=== PATIENT | male | born 1955 | race Caucasian/White ===

== ENCOUNTER 2023-06-07 02:20 | Emergency (ER) | payer OTHER ==
--- OUTSIDE RECORDS SUMMARY | 2023-06-07 02:24 | XMS REPORT | Continuity of Care Document ---
:1955 Author Organization [facility] t Address [address] [facility] [address] [place] [address] Care Team Providers Name Role Phone Lashae Melendez Primary Care Physician [phone] Lashae Nguyen Attending Clinician Unavailable VIVEK MOORE Attending Clinician Unavailable Payers Payer Name Policy Type Policy Number Effective Date Expiration Date S jer [employer] 6 [id number] [facility] t [facility] Problems Condition Condition Condition Status Onset Resolution Last Treating Co mments Source Name Details Category Date Date Treatment Clinician Date Benign Benign Disease Active Methodi essential essential 4-19 st tremor tremor 00:00: Hospita 00 l [id number] Obstructiv Problem Com mon e sleep Spirit apnea - [facility] syndrome [facility] [id number] Essential Problem Comm on hypertensi Spirit on - [facility] [id number] Vitreous Problem Commo n floaters Spirit of left - [facility] eye [facility] [id number] Cough Problem [facility] - [facility] [id number] Lumbar Problem Common spondylosi Spirit s - [facility] Esophageal Gastroesop Problem C ommon reflux hageal Spirit finding reflux - [facility] Gastritis Gastritis Problem Com mon Spirit [facility] Snoring Snoring Problem [facility] [id number] Screening Problem Com mon for Spirit prostate - [facility] cancer [facility] [id number] Body mass Problem Com mon index [facility] [BMI] [facility] 28.0-28.9, [facility] Allergies, Adverse Reactions, Alerts Allergy Allergy Status Severity Reaction(s) Onset Inactive Treating Comm ents Source Name Type Date Date Clinician lisinopr lisinopr Active cough Common il il Spirit - [facility] Family History Family Member Diagnosis Comments Start Date Stop Date Source Natural brother Hypertension [facility] father Tremor [facility] Natural mother Breast cancer [facility] mother Diabetes [facility] Social History Social Habit Start Date Stop Date Quantity Comments Source History of Tobacco Common [facility] - Use [facility] Gender identity [facility] Sexual orientation [facility] History of Social 2021-02-11 2021-02-[address] function 00:00:00 00:00:00 Hospital Alcohol Comment 2021-02-11 2021-02-11 occ [facility] 00:00:00 00:00:00 Hospital Tobacco use and 2021-02-11 2021-02-11 Smokeless [facility] exposure 00:00:00 00:00:00 tobacco non-user Hospital Alcohol intake 2021-02-11 2021-02-11 Current drinker [facility] 00:00:00 00:00:00 of alcohol Hospital (finding) Sex Ass[birth year] At [birth year] [facility] 00:00:00 00:00:00 Hospital Smoking Status Start Date Stop Date Source Never Smoker [facility] Medications Ordered Filled Start Stop Current Ordering Indication Dosage Frequency Signature Comments Components Source Medication Medication Date Date Medication? Clinician (SIG) Name Name cetirizine 2020-10 Yes 1 tablet Met hodi (ZyrTEC) 10 0-22 st MG tablet 09:06: Hospita 54 l famotidine 2020-10 Yes 1 tablet Met [facility] (Pepcid) 20 0-[address] MG tablet 09:06: as needed Hos krystal 54 l vitamins 2020-10 Yes as Methodi A,C,E-zinc- 0-[address] copper 09:06: Hospita (PreserVisi 54 l on AREDS) 7,160 unit- 113 mg-100 unit tablet methocarbam Yes TAKE 1 Meth freddie oL 9-[address] (ROBAXIN) 00:00: MOUTH Hospita 750 MG 00 EVERY 6 l tablet HOURS NEEDED FOR BACK SPASMS olmesartan Yes 20mg QD Take 20 mg M ethodi (BENICAR) 4-[address] 20 MG 00:00: daily. Hospita tablet 00 l Doxycycline Doxycycline 2020- No Lashae 1 capsule Common Hyclate Hyclate 11-30-06 [place] [facility] 00:00: 00:00 - [facility] 00 :00 [facility] Tessalon Tessalon 2020- No Lashae 1 capsule Common Perles Perles 2 02-20 [place] as needed Spir it 00:00: 00:00 - [facility] 00 :00 [facility] Vitamin E Vitamin E Yes Lashae 1 capsule Common [place] [facility] Vitamin A Vitamin A Yes Lashae 1 capsule Common [place] with food Spirit or milk [facility] Vitamin Vitamin Yes Lashae 2 tablet Comm on D-1000 Max D-1000 Max [place] Sp [facility]io [facility] Cetirizine Cetirizine Yes Lashae 1 tablet Common HCl HCl [place] [facility] Ranitidine Ranitidine Yes Lashae 1 tablet Common 150 Max 150 Max [place] [facility] Strength Strength [facility] Olmesartan Olmesartan Yes Lashae 1 tablet Common Medoxomil Medoxomil [place] Spir it [facility] Cetirizine Cetirizine No 1{table QD Cetirizine HCl 10 MG HCl 10 MG t} HCl 10 MG Pepcid 20 Pepcid 20 No 1{table QD Pepcid 20 MG MG t_at_be MG dtime_a s_neede d} Vitamin A Vitamin A No 1{capsu QD Vitamin A 8000 UNIT 8000 UNIT le_with 8000 UNIT _food_o r_milk} Vitamin Vitamin No 2{table QD Vitamin D-1000 Max D-1000 Max t} D-[address] 1000 UNIT UNIT UNIT Vitamin E Vitamin E No 1{capsu QD Vitamin E 400 UNIT 400 UNIT le} 400 UNIT Olmesartan Olmesartan No Olmesartan Medoxomil Medoxomil Medoxomil 20 MG 20 MG 20 MG Olmesartan Olmesartan No 1{table QD Olmesartan Medoxomil Medoxomil t} Medoxomil 20 20 20 Pepcid 20 Pepcid 20 No 1{table QD Pepcid 20 MG MG t_at_be MG dtime_a s_neede d} PreserVisio PreserVisio No PreserVisi n AREDS - n AREDS - on AREDS - Zinc 100 MG Zinc 100 MG No 1{table QD Zinc 100 t} MG Cetirizine Cetirizine No 1{table QD Cetirizine HCl 10 MG HCl 10 MG t} HCl 10 MG Olmesartan Olmesartan No Olmesartan Medoxomil Medoxomil Medoxomil 20 MG 20 MG 20 MG Vitamin Vitamin No 2{table QD Vitamin D-1000 Max D-1000 Max t} D-[address] 1000 UNIT UNIT UNIT Vitamin Vitamin No 2{table QD Vitamin D-1000 Max D-1000 Max t} D-[address] 1000 UNIT UNIT UNIT Olmesartan Olmesartan No Olmesartan Medoxomil Medoxomil Medoxomil 20 MG 20 MG 20 MG Pepcid 20 Pepcid 20 No 1{table QD Pepcid 20 MG MG t_at_be MG dtime_a s_neede d} Cetirizine Cetirizine No 1{table QD Cetirizine HCl 10 MG HCl 10 MG t} HCl 10 MG Zinc 100 MG Zinc 100 MG No 1{table QD Zinc 100 t} MG PreserVisio PreserVisio No PreserVisi n AREDS - n AREDS - on AREDS - Cetirizine Cetirizine No 1{table QD Cetirizine HCl 10 MG HCl 10 MG t} HCl 10 MG Pepcid 20 Pepcid 20 No 1{table QD Pepcid 20 MG MG t_at_be MG dtime_a s_neede d} Olmesartan Olmesartan No Olmesartan Medoxomil Medoxomil Medoxomil 20 MG 20 MG 20 MG Vitamin Vitamin No 2{table QD Vitamin D-1000 Max D-1000 Max t} D-[address] 1000 UNIT UNIT UNIT PreserVisio PreserVisio No PreserVisi n AREDS - n AREDS - on AREDS - Zinc 100 MG Zinc 100 MG No 1{table QD Zinc 100 t} MG Immunizations Ordered Immunization Filled Immunization Date Status Commen ts Source Name Name Prevnar 20 (PCV20) Prevnar 20 (PCV20) 2022-10-08 Completed [facility] 09:52:00 [facility] FLUZONE HIGH DOSE FLUZONE HIGH DOSE 2022-10-08 Completed [facility] OVER 65 OVER 65 09:51:00 - [facility] Flucelvax - Flucelvax - 2021-07-24 Completed Common Spiri t multidose vial multidose vial 08:21:00 - [facility] Flucelvax - Flucelvax - 2021-07-24 Completed Common Spiri t multidose vial multidose vial 08:21:00 [facility] Flucelvax - Flucelvax - 2021-07-24 Completed Common Spiri t multidose vial multidose vial 08:21:00 [facility] Pfizer COVID-19 Pfizer COVID-19 2021-02-06 Completed Comm on Spirit Vaccine Vaccine 09:06:00 - [facility] Pfizer COVID-19 Pfizer COVID-19 2021-02-06 Completed Comm on Spirit Vaccine Vaccine 09:06:00 - [facility] Pfizer COVID-19 Pfizer COVID-19 2021-02-06 Completed Comm on [facility] Vaccine Vaccine 09:06:00 [facility] Pfizer COVID-19 Pfizer COVID-19 2021-01-16 Completed Comm on [facility] Vaccine Vaccine 08:24:00 - [facility] Pfizer COVID-19 Pfizer COVID-19 2021-01-16 Completed Comm on Spirit Vaccine Vaccine 08:24:00 - [facility] Pfizer COVID-19 Pfizer COVID-19 2021-01-16 Completed Comm on [facility] Vaccine Vaccine 08:24:00 [facility] Pfizer COVID-19 Pfizer COVID-19 2021-01-16 Completed Comm on [facility] Vaccine Vaccine 08:24:00 [facility] Shingrix Shingrix 2020-11-23 Completed [facility] 08:43:00 [facility] Shingrix Shingrix 2020-11-23 Completed [facility] 08:43:00 - [facility] Shingrix Shingrix 2020-11-23 Completed [facility] 08:43:00 - [facility] Shingrix Shingrix 2020-11-23 Completed [facility] 08:43:00 - [facility] Flucelvax - single Flucelvax - single 2020-07-24 Completed [facility] dose syringe dose syringe 08:19:00 - [facility] Flucelvax - single Flucelvax - single 2020-07-24 Completed [facility] dose syringe dose syringe 08:19:00 - [facility] Flucelvax - single Flucelvax - single 2020-07-24 Completed [facility] dose syringe dose syringe 08:19:00 - [facility] Flucelvax - single Flucelvax - single 2020-07-24 Completed [facility] dose syringe dose syringe 08:19:00 - [facility] Vital Signs Vital Name Observation Time Observation Value Comments Source height 2022-10-08 08:00:00 69 [in_i] [facility] weight 2022-10-08 08:00:00 187.4 [lb_av] [facility] temperature 2022-10-08 08:00:00 98.7 [degF] [facility] bmi 2022-10-08 08:00:00 27.67 kg/m2 [facility] oximetry 2022-10-08 08:00:00 95 % [facility] respiratory rate 2022-10-08 08:00:00 17 /min Comm on [facility] blood pressure 2022-10-08 08:00:00 134 mm[Hg] Common [facility] - systolic [facility] blood pressure 2022-10-08 08:00:00 68 mm[Hg] [facility] - diastolic [facility] height 2022-08-13 08:00:00 69 [in_i] [facility] weight 2022-08-13 08:00:00 192 [lb_av] Common [facility] temperature 2022-08-13 08:00:00 97.2 [degF] [facility] bmi 2022-08-13 08:00:00 28.35 kg/m2 [facility] oximetry 2022-08-13 08:00:00 97 % [facility] respiratory rate 2022-08-13 08:00:00 16 /min Comm on [facility] blood pressure 2022-08-13 08:00:00 139 mm[Hg] [facility] systolic [facility] blood pressure 2022-08-13 08:00:00 76 mm[Hg] [facility] diastolic [facility] weight 2022-02-13 08:40:00 187.6 [lb_av] [facility] temperature 2022-02-13 08:40:00 97.9 [degF] [facility] bmi 2022-02-13 08:40:00 27.7 kg/m2 [facility] oximetry 2022-02-13 08:40:00 97 % [facility] respiratory rate 2022-02-13 08:40:00 16 /min Comm on [facility] blood pressure 2022-02-13 08:40:00 136 mm[Hg] [facility] - systolic [facility] blood pressure 2022-02-13 08:40:00 80 mm[Hg] [facility] diastolic [facility] height 2022-02-13 08:40:00 69 [in_i] [facility] Procedures This patient has no known procedures. Plan of Care Planned Activity Planned Date Details Comments Source Future Scheduled 2023-06-07 [facility] Test 02:23:42 malignant neoplasm of colon (procedure) [code = 296004589] Future Scheduled 2023-06-07 [facility] Test 02:23:42 malignant neoplasm of colon (procedure) [code = 158450463] Future Scheduled 2023-06-07 [facility] Test 02:23:42 malignant neoplasm of colon (procedure) [code = 270834728] Future Scheduled 2023-06-07 Hepatitis C screening [facility] Test 02:23:42 (procedure) [code = 573464861] Future Scheduled 2023-06-07 [facility] Test 02:23:42 malignant neoplasm of colon (procedure) [code = 390304733] Future Scheduled 2023-06-07 [facility] Test 02:23:42 malignant neoplasm of colon (procedure) [code = 500745204] Future Scheduled 2023-06-07 SHINGLES VACCINES (1 [facility] 02:23:42 of 2) [code = SHINGLES VACCINES (1 of 2)] Future Scheduled 2023-06-07 COVID-19 VACCINE (3 - [facility] Test 02:23:42 Pfizer series) [code = COVID-19 VACCINE (3 - Pfizer series)] Future Scheduled 2023-06-07 65+ [facility]OCOCCAL [facility] Test 02:23:42 VACCINE (1 - PCV) [code = 65+ PNEUMOCOCCAL VACCINE (1 - PCV)] Future Scheduled 2023-06-07 INFLUENZA VACCINE [facility] Test 02:23:42 [code = INFLUENZA VACCINE] Encounters Start End Encounter Admission Attending Care Care Encounter Source Date/Time Date/Time Type Type Clinicians Facility Department ID 2022-08-13 Outpatient BRANDON Nguyen [facility] [id number] Common 14:10:00 Lashae [id number] [facility] 2021-11-[address] [facility]GANGA [facility] [id number] Common 11:49:13 Lashae [id number] [facility] 2022-10-08 2022-10-08 WELCOME TO [facility] [id number] Common 00:00:00 00:00:00 MEDICARE Spiri t PREV PHY - [facility] EXAM [facility] 2022-08-13 2022-08-13 OFFICE [facility] [id number] Co mmon 00:00:00 00:00:00 VISIT EST Spir it PT LEVEL 3 [facility] 2022-02-13 2022-02-13 PREV VISIT [facility] [id number] Common 00:00:00 00:00:00 EST AGE Spirit 40-64 [facility] 2021-08-16 2021-08-16 Outpatient VIVEK MOORE [facility] [id number] [place] 00:00:00 00:00:[address] 2021-07-15 2021-07-15 (TEL) STLMLC STLMLC [id number] Co mmon 00:00:00 00:00:00 [facility] 2021-02-11 2021-02-11 Outpatient VIVEK MOORE [facility] [id number] [place] 00:00:00 00:00:[address] 2021-01-22 2021-01-22 Outpatient STLMLC STLMLC [id number] Common 00:00:00 00:00:00 [facility] 2021-01-21 2021-01-21 Outpatient STLMLC STLMLC [id number] Common 00:00:00 00:00:00 [facility] 2020-08-08 2020-08-08 Outpatient STLMLC STLMLC [id number] Common 00:00:00 00:00:00 [facility] 2020-07-24 2020-07-24 Outpatient STLMLC STLMLC [id number] Common 00:00:00 00:00:00 [facility] 2019-11-30 2019-11-30 Outpatient [facility] [id number] Common 14:20:00 14:20:00 [facility] [address] [facility] 2019-07-26 2019-07-26 Outpatient [facility] [id number] Common 10:33:00 10:33:00 [facility] [address] [facility] 2019-07-08 2019-07-08 Outpatient [facility] [id number] Common 10:20:00 10:20:00 [facility] Road [facility] it Road [facility] 2019-04-13 2019-04-13 Outpatient [facility] [id number] Common 16:45:00 16:45:00 [facility] it [address] [facility] 2019-01-21 2019-01-21 Outpatient Juan Pablo Almeidat [id number] Common 09:30:00 09:30:00 t [facility] [address] Spir it Road [facility] 2018-07-26 2018-07-26 Outpatient Juan Pablo Almeidat [id number] Common 13:34:00 13:34:00 t [facility] [address] Spir [address] Road [facility] 2018-07-20 2018-07-20 Outpatient Juan Pablo Aguilar [id number] Common 15:30:00 15:30:00 t [facility] [address] Spir it Road [facility] Results This patient has no known results.
[2023-06-07] MEDS ORDERED: MORPHINE 4 MG/ML SYR ONE ×2 (03:25→04:12)
[2023-06-07] MEDS ORDERED: ONDANSETRON 4 MG/2 ML VIAL ONE (03:25)
[2023-06-07] MEDS ORDERED: NA CHLORIDE 0.9% 1,000 ML ONE (03:33)
[2023-06-07 04:19] LABS: Absolute Lymphocytes (CBC) 1.1 K/uL (0.7-4.9); Lymphocytes % 15.9 % (15.3-44.8); MCV 87.4 fL (80-100); MPV 9.5 fL (7.6-11.3); Platelets 188 thou/uL (152-406); RBC Red Blood Cell Count 4.81 M/uL (4.33-5.43)
[2023-06-07 04:26] LABS: Calcium Oxalate Crystals- Ur Few /HPF (None Seen); Urine Bacteria None Seen /HPF (<20); Urine Crystals Unidentified Few /HPF (None Seen); Urine Mucus 1+ /HPF (None Seen); Urine RBC >50 /HPF (None Seen)
[2023-06-07 04:32] LABS: Specific Gravity 1.032 (1.005-1.030); Urine Bilirubin NEGATIVE (Negative); Urine Blood 2+ (Negative); Urine Clarity Extremely Turbid (Clear); Urine Color Light-Orange (Yellow); Urine Glucose NEGATIVE (Negative); Urine Protein 1+ (Negative); Urine Urobilinogen Normal (Normal); Urine pH 5.5 (5.0-7.0)
[2023-06-07 04:41] LABS: Albumin 3.8 g/dL (3.4-5.0); Bilirubin Total 0.4 mg/dL (0.2-1.0); Potassium 3.4 mEq/L (3.5-5.1); Protein, Total 7.4 g/dL (6.4-8.2); Troponin High Sensitivity 7.8 pg/mL (<58.9)
--- NOTE | 2023-06-07 04:55 | ER ---
Nurse's Notes [facility] Name: Joseluis Dolan Age: 68 yrs Sex: Male : 1955 Arrival Date: 06/07/2023 Time: 02:20 Bed 14 Private MD: Diagnosis: Kidney stones;Acute Right Flank Pain Presentation: 06/07 02:40 Chief complaint: Patient states: right flank pain and difficulty urinating since kl yesterday am. Coronavirus screen: Vaccine status: Patient reports receiving the 2nd dose of the covid vaccine. Ebola Screen: Patient negative for fever greater than or equal to 101.5 degrees Fahrenheit, and additional compatible Ebola Virus Disease symptoms. Initial Sepsis Screen: Does the patient meet any 2 criteria? No. Patient's initial sepsis screen is negative. Does the patient have a suspected source of infection? No. Patient's initial sepsis screen is negative. Risk Assessment: Do you want to hurt yourself or someone else? Patient reports no desire to harm self or others. 02:40 Method Of Arrival: Ambulatory kl 02:40 Acuity: WES 3 kl 04:11 Onset of symptoms was June 07, 2023. kd3 Triage Assessment: 02:43 General: Appears distressed, uncomfortable, Behavior is cooperative. Pain: Complains of kl pain in right flank Pain currently is 6 out of 10 on a pain scale. : Reports urgency. Historical: - Allergies: 02:42 No Known Allergies; kl - Home Meds: 02:42 losartan 50 mg oral tablet daily [Active]; kl - PMHx: 02:42 Hypertensive disorder; Kidney stone; kl - PSHx: 02:42 knee; kl - Immunization history:: Adult Immunizations up to date. - Social history:: Smoking status: Patient denies any tobacco usage or history of. Screenin:[address] [facility] ED Fall Risk Assessment (Adult) History of falling in the last 3 months, kd3 including since admission No falls in past 3 months (0 pts) Confusion or Disorientation No (0 pts) Intoxicated or Sedated No (0 pts) Impaired Gait No (0 pts) Mobility Assist Device Used No (0 pt) Altered Elimination No (0 pt) Score/Fall Risk Level 0 - 2 = Low Risk Maintained a safe environment. Abuse screen: Denies threats or abuse. Denies injuries from another. Nutritional screening: No deficits noted. Tuberculosis screening: No symptoms or risk factors identified. Assessment: 04:11 Pain: Pain currently is 10 out of 10 on a pain scale. GI: Bowel sounds present X 4 kd3 quads. Abdomen is tender to palpation in right lower quadrant and left lower quadrant. 04:51 Reassessment: Patient and/or family updated on plan of care and expected duration. Pain kd3 level reassessed. Patient is alert, oriented x 3, equal unlabored respirations, skin warm/dry/pink. Patient states feeling better. Patient states symptoms have improved. 05:19 Reassessment: Patient appears in no apparent distress at this time. Patient and/or jb4 family updated on plan of care and expected duration. Pain level reassessed. Patient is alert, oriented x 3, equal unlabored respirations, skin warm/dry/pink. Vital Signs: 02:40 BP 194 / 103; Pulse 61; Resp 18; Temp 98(O); Pulse Ox 99% on R/A; Weight 86.18 kg (R); kl Height 5 ft. 7 in. ; Pain 6/10; 03:10 BP 159 / 91; Pulse 57; Resp 18; Pulse Ox 93% on R/A; kd3 04:10 BP 175 / 90; Pulse 54; Resp 18; Pulse Ox 94% on R/A; kd3 04:32 BP 174 / 86; Pulse 65; Resp 16; Pulse Ox 95% on R/A; kd3 04:43 BP 158 / 79; Pulse 73; Resp 18; Pulse Ox 93% on R/A; kd3 04:50 BP 161 / 81; Pulse 67; Resp 15; Pulse Ox 93% on R/A; kd3 02:40 Body Mass Index 29.76 (86.18 kg, 170.18 cm) kl 02:40 Pain Scale: Adult kl ED Course: 02:22 Patient arrived in ED. kj1 02:30 Faviola Macario MD is Attending Physician. sd2 02:42 Triage completed. kl 02:56 Yuli Smiley, ROSANA is Primary Nurse. kd3 02:56 Inserted saline lock: 20 gauge in right antecubital area, using aseptic technique. kd3 Blood collected. 03:33 Troponin High Sensitivity Sent. kd3 03:33 CMP Sent. kd3 03:33 CBC with Diff Sent. kd3 04:11 Arm band placed on right wrist. kd3 04:11 Patient has correct armband on for positive identification. kd3 04:53 Yared Haji MD is Referral Physician. sd2 05:19 No provider procedures requiring assistance completed. IV discontinued, intact, jb4 bleeding controlled, No redness/swelling at site. Pressure dressing applied. Administered Medications: 03:20 Drug: morphine IVP or IV 4 mg Route: IVP; Infused Over: 4 mins; Site: right antecubital;kd3 03:20 Drug: Ondansetron IVP 4 mg Route: IVP; Site: right antecubital; kd3 03:24 Drug: NS 0.9% IV 1000 ml Route: IV; Rate: 1 bolus; Site: right antecubital; kd3 04:09 Drug: morphine IVP or IV 4 mg Route: IVP; Infused Over: 4 mins; Site: right antecubital;kd3 Medication: 04:11 VIS not applicable for this client. kd3 Outcome: 04:54 Discharge ordered by . sd2 05:19 Discharged to home ambulatory. jb4 05:19 Condition: stable 05:19 Discharge instructions given to patient, Instructed on discharge instructions, follow up and referral plans. medication usage, Demonstrated understanding of instructions, follow-up care, medications, Prescriptions given X 4. 05:19 Patient left the ED. jb4 Signatures: Abbi Sommers, RN Kevon Rojas RN RN jb4 Elizabeth Ureña Kyli, RN RN kd3 Faviola Macario MD MD sd2
--- NOTE | 2023-06-07 04:55 | EDPHYS ---
Physician Documentation [facility] Name: Joseluis Dolan Age: 68 yrs Sex: Male : 1955 Arrival Date: 06/07/2023 Time: 02:20 Bed 14 Private MD: ED Physician Faviola Macario HPI: 06/07 04:48 68 yo M presents with CC of right sided flank pain. Reports has had similar episodes sd2 intermittently for the past 3 weeks that felt like kidney stones that resolve once passed and he was able to catch one of the stones last time with a strainer. No prior interventions needed for stones. Does not currently follow up with Urology. Endorses vomiting but denies fever, diarrhea or urinary symptoms.. Historical: - Allergies: 02:42 No Known Allergies; kl - Home Meds: 02:42 losartan 50 mg oral tablet daily [Active]; kl - PMHx: 02:42 Hypertensive disorder; Kidney stone; kl - PSHx: 02:42 knee; kl - Immunization history:: Adult Immunizations up to date. - Social history:: Smoking status: Patient denies any tobacco usage or history of. ROS: 04:48 Constitutional: Negative for fever, chills, and weight loss, Eyes: Negative for injury, sd2 pain, redness, and discharge, Cardiovascular: Negative for chest pain, palpitations, and edema, Respiratory: Negative for shortness of breath, cough, wheezing. Abdomen/GI: Negative for abdominal pain, nausea, vomiting, diarrhea. Back: Negative for injury and pain, : Negative for dysuria, frequency or hematuria. MS/Extremity: Negative for injury and deformity, Skin: Negative for injury, rash, and discoloration, Neuro: Negative for headache, numbness and tingling. Exam: 04:48 Constitutional: This is a well developed, well nourished patient who is awake, alert, sd2 and in no acute distress. Head/Face: Normocephalic, atraumatic. Eyes: EOMI, normal conjunctiva bilaterally Chest/axilla: Normal chest wall appearance and motion. Nontender with no deformity. Cardiovascular: Regular rate and rhythm with a normal S1 and S2. No gallops, murmurs, or rubs. 2+ distal pulses. Respiratory: Lungs have equal breath sounds bilaterally, clear to auscultation and percussion. No rales, rhonchi or wheezes noted. No increased work of breathing, no retractions or nasal flaring. Abdomen/GI: Soft, non-tender, with normal bowel sounds. No guarding or rebound. No evidence of tenderness throughout. Back: No spinal tenderness. No costovertebral tenderness. Full range of motion. Skin: Warm, dry with normal turgor. Normal color with no rashes, no lesions, and no evidence of cellulitis. MS/ Extremity: Pulses equal, no cyanosis. Neurovascular intact. Full, normal range of motion. Ambulatory without difficulty. Psych: Awake, alert, with orientation to person, place and time. Behavior, mood, and affect are within normal limits. Vital Signs: 02:40 BP 194 / 103; Pulse 61; Resp 18; Temp 98(O); Pulse Ox 99% on R/A; Weight 86.18 kg (R); kl Height 5 ft. 7 in. ; Pain 6/10; 03:10 BP 159 / 91; Pulse 57; Resp 18; Pulse Ox 93% on R/A; kd3 04:10 BP 175 / 90; Pulse 54; Resp 18; Pulse Ox 94% on R/A; kd3 04:32 BP 174 / 86; Pulse 65; Resp 16; Pulse Ox 95% on R/A; kd3 04:43 BP 158 / 79; Pulse 73; Resp 18; Pulse Ox 93% on R/A; kd3 04:50 BP 161 / 81; Pulse 67; Resp 15; Pulse Ox 93% on R/A; kd3 02:40 Body Mass Index 29.76 (86.18 kg, 170.18 cm) kl 02:40 Pain Scale: Adult kl MDM: 03:11 Patient medically screened. sd2 04:48 Differential Diagnosis Gastritis, cholecystitis, pancreatitis, SBO, diverticulitis, sd2 kidney stone, appendicitis, UTI, dehydration, electrolyte abnormality among others. Data reviewed: vital signs, nurses notes, lab test result(s). I considered the following discharge prescriptions or medication management in the emergency department Medications were administered in the Emergency Department. See MAR. Test considered but Not performed: CT: Patient declined after discussing risks and benefits. Counseling: I had a detailed discussion with the patient and/or guardian regarding: the historical points, exam findings, and any diagnostic results supporting the discharge/admit diagnosis, lab results, the need for outpatient follow up, to return to the emergency department if symptoms worsen or persist or if there are any questions or concerns that arise at home. ED course: Pt chose to forego imaging due to not feeling a need for it because he has had multiple kidney stones that feel the exact same way in the past. . 06/07 03:11 Order name: CBC with Diff; Complete Time: 04:37 sd2 06/07 03:11 Order name: CMP; Complete Time: 04:41 sd2 06/07 03:11 Order name: Troponin High Sensitivity; Complete Time: 04:41 sd2 06/07 03:11 Order name: Urinalysis w/ reflexes; Complete Time: 04:37 sd2 06/07 03:11 Order name: EKG - Nurse/Tech; Complete Time: 03:33 sd2 Administered Medications: 03:20 Drug: morphine IVP or IV 4 mg Route: IVP; Infused Over: 4 mins; Site: right antecubital;kd3 03:20 Drug: Ondansetron IVP 4 mg Route: IVP; Site: right antecubital; kd3 03:24 Drug: NS 0.9% IV 1000 ml Route: IV; Rate: 1 bolus; Site: right antecubital; kd3 04:09 Drug: morphine IVP or IV 4 mg Route: IVP; Infused Over: 4 mins; Site: right antecubital;kd3 Disposition Summary: 06/07/23 04:54 Discharge Ordered Location: Home sd2 Problem: new sd2 Symptoms: have improved sd2 Condition: Stable sd2 Diagnosis - Kidney stones sd2 - Acute Right Flank Pain sd2 Followup: sd2 - With: Private Physician - When: 2 - 3 days - Reason: Recheck today's complaints, Continuance of care, Re-evaluation by your physician Followup: sd2 - With: Yared Haji MD - When: 2 - 3 days - Reason: Recheck today's complaints, Continuance of care Discharge Instructions: - Discharge Summary Sheet sd2 - Kidney Stones sd2 - Dietary Guidelines to Help Prevent Kidney Stones sd2 Forms: - Medication Reconciliation Form sd2 - Thank You Letter sd2 - Antibiotic Education sd2 - Prescription Opioid Use sd2 - Patient Portal Instructions sd2 - Leadership Thank You Letter sd2 Prescriptions: - Flomax 0.4 mg Oral capsule - take 1 capsule by ORAL route daily for 7 days; 7 capsule; Refills: 0, Product sd2 Selection Permitted - Ibuprofen 800 mg Oral Tablet - take 1 tablet by ORAL route every 8 hours As needed take with food; 20 tablet; sd2 Refills: 0, Product Selection Permitted - Zofran 4 mg Oral Tablet - take 1 tablet by ORAL route every 6 hours As needed; 15 tablet; Refills: 0, sd2 Product Selection Permitted - Tramadol 50 mg Oral Tablet - take 1 tablet by ORAL route every 6 hours As needed as needed; 12 tablet; sd2 Refills: 0, Product Selection Permitted Signatures: Dispatcher [employer] Abbi Truong RN RN kl Doucette, Kyli, RN RN kd3 Faviola Macario MD MD sd2
[2023-06-07 05:32] VITALS: TEMP 98
[2023-06-07 05:45] VITALS: O2SAT 93
[2023-06-07 05:47] VITALS: BP 161/81
--- NOTE | 2023-06-08 13:12 | EKG ---
Test Date: 2023-06-07 Test Time: 03:30:16 [employer] Scheduler: MARIMAR MEASUREMENT RESULTS: Intervals: Rate: 58 MN: 168 QRSD: 96 QT: 416 QTc: [address] [place]: P: 71 MN: 168 QRS: 80 T: 66 INTERPRETIVE STATEMENTS: Sinus bradycardia with sinus arrhythmia Otherwise normal ECG Compared to ECG 11/05/2022 09:56:49 Sinus rhythm no longer present ST (T wave) deviation no longer present Electronically Signed On 06-08-23 13:10:11 CDT by Robert Rebolledo
== END 2023-06-07 05:19 | disposition home or self-care (01) ==
LOC: ER 02:20
DX: N20.0 Calculus of kidney (principal); Z87.442 Personal history of urinary calculi; I10 Essential (primary) hypertension
CPT/HCPCS: 93005; 85025; 81001; 36415; 84484; 80053; 96375; 96374; 99284; J2405; J7030